=== PATIENT | male | born 2000 | race Caucasian/White ===

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

== ENCOUNTER → 2021-02-09 13:42 | Outpatient (CLI) | payer BC, SELFPAY | PROVIDERS: PCP Emergency Medicine; Visit Provider Nurse Practitioner | DX: Z20.822 Contact with and (suspected) exposure to COVID-19 (principal) | CPT/HCPCS: C9803; U0003; U0005 ==

== ENCOUNTER → 2021-12-19 15:09 | Outpatient (CLI) | payer BC, SELFPAY ==
[2021-12-19 16:06] LABS: Basophils # 0.1 K/mm3 (0-0.2); Basophils % 1.2 % (0.1-2.0); Eosinophils # 0.2 K/mm3 (0.0-0.4); Eosinophils % 1.9 % (0.1-12.0); Hematocrit 48.4 % (42.0-52.0); Hemoglobin 14.8 g/dL (14.1-18.0); Lymphocytes # 4.2 K/mm3 (0.7-4.5); Lymphocytes % 43.2 % (10-50); Mean Corpuscular HGB Conc 30.6 g/dL (31.8-35.4); Mean Corpuscular Volume 91.4 fl (80-94); Monocytes # 0.6 K/mm3 (0.1-1.0); Monocytes % 6.3 % (1.7-9.3); Neutrophils # 4.6 K/mm3 (1.8-7.8); Neutrophils % 47.3 % (37.0-80.0); Platelet Count 305 K/mm3 (142-424); Red Blood Count 5.29 M/mm3 (4.60-6.20); Red Cell Distribution Width 13.5 % (11.5-17.5); White Blood Count 9.6 K/mm3 (4.5-13.0)
[2021-12-19 16:22] LABS: Alanine Aminotransferase 29 U/L (12-78); Albumin Level 4.4 g/dl (3.5-5.0); Albumin/Globulin Ratio 1.4 (1.1-1.8); Alkaline Phosphatase 104 U/L (38-126); Anion Gap 17.6 mEq/L (5-15); Aspartate Amino Transferase 40 U/L (17-59); Bilirubin,Total 0.3 mg/dl (0.2-1.3); Blood Urea Nitrogen 16 mg/dl (9-20); Calcium 9.2 mg/dl (8.4-10.2); Carbon Dioxide 33 mmol/L (22.0-30.0); Chloride 97 mmol/L (98-107); Estimated Glomerular Filt Rate 95 ml/min (>60); GFR (African American) 115 ML/MIN (>60); Globulin 3.2 g/dL (1.3-3.2); Glucose 77 mg/dl (74-100); Potassium 3.6 mmoL/L (3.5-5.1); Sodium 144 mmol/L (136-145); Total Protein,Serum 7.6 g/dl (6.3-8.2)
[2021-12-19 16:34] LABS: Erythrocyte Sedimentation Rate 5 mm/hr (0-15)
[2021-12-21 08:10] LABS: RA Latex Turbid. <10.0 IU/mL (<14.0)
[2021-12-22 14:11] LABS: Albumin 3.9 g/dL (2.9-4.4); Alpha-1-Globulin 0.3 g/dL (0.0-0.4); Alpha-2-Globulin 0.8 g/dL (0.4-1.0); Gamma Globulin 1.5 g/dL (0.4-1.8); Protein, Total 7.4 g/dL (6.0-8.5)
[2021-12-22 21:42] LABS: Antinuclear Antibodies, IFA Negative (.)
[2021-12-24 09:44] LABS: Lyme B. burgdorferi PCR Blood Negative (Negative)
[2021-12-25 14:19] LABS: Candida Antibodies IgA Negative (Negative); Candida Antibodies IgG Equivocal (Negative); Candida Antibodies IgM Negative (Negative)
== END ==
PROVIDERS: PCP Emergency Medicine; Visit Provider Emergency Medicine
DX: R53.83 Other fatigue (principal)
CPT/HCPCS: 36415; 80053; 84155; 84165; 84550; 85025; 85651; 86038; 86431; 86628; 87476

== ENCOUNTER 2022-01-10 17:27 | Emergency (ER) | payer BC, SELFPAY ==
[2022-01-10 19:10] VITALS: BP 117/87; PULSE 89; RESP 19; TEMP 36.8; O2SAT 99; BMI 18.6
[2022-01-10 19:14] LABS: Apearance,Urine Clear (Clear); Bilirubin,Urine Negative (Negative); Blood, Urine Negative (Negative); Color,Urine Yellow (Yellow); Glucose,Urine (UA) Negative (Negative); Ketones,Urine Negative (Negative); Protein,Urine Negative (Negative); Specific Gravity, Urine 1.025 (1.005-1.030); UTC Leukocyte Esterase,Urine Negative (Negative); UTC Nitrate,Urine Negative (Negative); Urobilinogen,Urine 0.2 EU/dl (0.2)
[2022-01-10 19:19] LABS: Microscopic, Urine URINE MICROSCOPIC (MICROSCOPIC)
[2022-01-10 19:22] LABS: Appearance,Urine CLEAR (Clear); Bilirubin,Urine Negative (Negative); Blood, Urine Negative (Negative); Color,Urine YELLOW (Yellow); Glucose,Urine (UA) Negative (Negative); Ketones,Urine Negative (Negative); Leukocyte Esterase,Urine Negative (Negative); Nitrate,Urine Negative (Negative); PH,Urine 7.5 (5.0-8.5); Protein,Urine Negative (Negative); Urobilinogen,Urine 0.2 EU/dl (0.2)
[2022-01-10 19:34] LABS: Bacteria,Urine Trace /lpf; Squamous Epithelial Cell,Urine Occasional #/hpf (0-5)
--- NOTE | 2022-01-10 20:04 | EXP.UTC ---
Discharge Plan Disposition Patient Disposition: Home, Self-Care Condition: Good Prescriptions Prescriptions: No Action Vraylar 1.5 mg capsule 1.5 mg PO DAILY Qty: 30 1RF quetiapine [Seroquel] 50 mg tablet 50 mg PO QHS Qty: 30 1RF bupropion HCl [Wellbutrin XL] 300 mg tablet extended release 24 hr 300 mg PO DAILY Qty: 30 1RF buspirone 10 mg tablet 10 mg PO BID Qty: 60 1RF prednisone 20 mg tablet See Rx Instructions .Route .COMPLEX Qty: 21 0RF Rx Instructions: Take 2 tablets twice daily for 3 days, then Take 1 tablet twice daily for 3 days, then Take 1 tablet daily for 3 days Referrals Follow up/Referrals: Romel Mcmullen MD [Primary Care Provider] - See instructions Activity Restrictions/Add. Instructions Additional Instructions/Restrictions: Make sure to follow up with your Family Doctor if symptoms persist and immediately if they worsen Straight to ER if any life threatening symptoms Follow up in the next 5-7 days for the results of your test Return if needed Clinical Impressions Clinical Impression: Urinary problem Instructions Patient Instructions: Chlamydia: The Silent STD, Facts About Sexually Transmitted Infections, How to Detect and Treat STDs Discharge ED Provider: Oralia Conrad [facility] General Stated complaint: poss UTI Mode of Arrival: Ambulatory Source of Information: Patient Limitations: No Limitations Time Seen by Provider: 01/10/22 20:04 Description of Symptoms (Recalled from Triage Doc. by RN): PATIENT C/O RIGHT LOWER BACK PAIN AND PAINFUL URINATION X 5 DAYS HEENT Symptoms (Recalled from RN notes): No Resp Symptoms (Recalled from RN notes): No Skin Symptoms (Recalled from RN notes): No MS Symptoms (Recalled from RN notes): No Functional Status (Recalled from RN notes): WNL History of Present Illness Provider Complaint: Patient states that he has had slight pain on and off for about 5 days State that he went to the bathroom earlier today and had the pain again and was feeling achy like in his right side States that not having pain now but was concerned and wanted to get tested for UTI and GC/Gonorrhea and trich States that he was worried he may have an STD States that father has kidney stones but told him this is not like what he had Denies swelling in scrotum and had a little discharge earlier after he urinated but not since Related Data Previous Rx's Medication Instructions Recorded cariprazine 1.5 mg capsule 1.5 mg PO DAILY #30 caps 08/04/21 (Vraylar) bupropion HCl 300 mg 24 hr tablet, 300 mg PO DAILY #30 tabs 10/02/21 extended release (Wellbutrin XL) buspirone 10 mg tablet 10 mg PO BID #60 tabs 10/02/21 quetiapine 50 mg tablet (Seroquel) 50 mg PO QHS #30 tabs 10/02/21 prednisone 20 mg tablet See Rx Instructions .Route 12/12/21 .COMPLEX #21 tabs Allergies Allergy/AdvReac Type Severity Reaction Status Date / Time cephalexin Allergy Intermediate Hives Verified 10/02/21 13:05 doxycycline Allergy Verified 01/10/22 19:31 pseudoephedrine Allergy Verified 01/10/22 19:31 [From Sudafed] Worker's Comp Is this a Worker's Comp case?: No [facility] Medical History (Updated 01/10/22 @ 20:17 by Oralia Conrad APRN) Generalized anxiety disorder Major depressive disorder Social History (Updated 01/10/22 @ 19:30 by Allie Yuen RN) Smoking Status: Never smoker alcohol intake: never substance use type: denies use and marijuana (last time was on 06-18; this was the 1st time he ever did this; it was prom. He went to [facility]; did not have a prom date.) current occupational status: other Travel in the last 8 weeks: None household members: family housing: house number of children: 0 ROS Obtained: Yes All systems reviewed & no additional complaints except as documented and Yes Systems reviewed as appropriate & no additional complaints except as documented Constitutional Constitutional: Reports system reviewed and no add
[2022-01-10 20:20] VITALS: BP 117/87; PULSE 89; RESP 19; TEMP 36.8; O2SAT 99
[2022-01-13 22:17] LABS: Neisseria gonorrhoeae, NAA Negative (Negative)
== END 2022-01-10 20:24 | disposition home or self-care (01) ==
PROVIDERS: Emergency Provider Nurse Practitioner; PCP Emergency Medicine
DX: R30.9 Painful micturition, unspecified (principal); M54.50 Low back pain, unspecified
CPT/HCPCS: 81001; 81003; 87086; 87491; 87591; 99212; G0463

== ENCOUNTER → 2022-07-31 16:24 | Outpatient (CLI) | payer BC, SELFPAY ==
[2022-08-04 15:12] LABS: QuantiFERON-TB Gold Plus Negative (Negative)
== END ==
PROVIDERS: PCP Emergency Medicine; Visit Provider Nurse Practitioner Family
DX: Z11.1 Encounter for screening for respiratory tuberculosis
CPT/HCPCS: 36415; 86480

== ENCOUNTER → 2022-08-27 15:00 | Outpatient (CLI) | payer BC, SELFPAY ==
[2022-08-27 18:14] LABS: Basophils % 0.3 % (0.1-2.0); Eosinophils # 0.5 K/mm3 (0.0-0.4); Eosinophils % 4.7 % (0.1-12.0); Hematocrit 47.6 % (42.0-52.0); Hemoglobin 15.2 g/dL (14.1-18.0); Lymphocytes # 2.1 K/mm3 (0.7-4.5); Lymphocytes % 21.1 % (10-50); Mean Corpuscular HGB Conc 31.9 g/dL (31.8-35.4); Mean Corpuscular Volume 90.8 fl (80-94); Mean Platelet Volume 9.1 fl (7.4-10.4); Monocytes # 0.7 K/mm3 (0.1-1.0); Monocytes % 7.1 % (1.7-9.3); Neutrophils # 6.7 K/mm3 (1.8-7.8); Neutrophils % 66.8 % (37.0-80.0); Platelet Count 210 K/mm3 (142-424); Red Blood Count 5.24 M/mm3 (4.60-6.20); Red Cell Distribution Width 12.8 % (11.5-17.5)
[2022-08-27 18:55] LABS: Alanine Aminotransferase 30 U/L (12-78); Albumin Level 4.8 g/dl (3.5-5.0); Albumin/Globulin Ratio 1.5 (1.1-1.8); Alkaline Phosphatase 81 U/L (38-126); Anion Gap 17.6 mEq/L (5-15); Aspartate Amino Transferase 43 U/L (17-59); Bilirubin,Total 0.3 mg/dl (0.2-1.3); Blood Urea Nitrogen 21 mg/dl (9-20); Calcium 9.6 mg/dl (8.4-10.2); Carbon Dioxide 28 mmol/L (22.0-30.0); Chloride 101 mmol/L (98-107); Estimated Glomerular Filt Rate 107 ml/min (>60); GFR (African American) 129 ML/MIN (>60); Globulin 3.2 g/dL (1.3-3.2); Glucose 92 mg/dl (74-100); Potassium 4.6 mmoL/L (3.5-5.1); Sodium 142 mmol/L (136-145)
[2022-08-27 19:10] LABS: C-Reactive Protein 0.7 mg/L (0-4)
[2022-08-27 19:13] LABS: 25-OH Vitamin D, Total 121 ng/mL (30-100)
[2022-08-27 19:27] LABS: Erythrocyte Sedimentation Rate 3 mm/hr (0-15); Thyroid Stimulating Hormone 1.15 uIU/mL (0.465-4.68)
[2022-08-29 12:10] LABS: Anti-Cyclic Citrullinated Pept 5 units (0-19)
[2022-08-29 16:02] LABS: Anti-Cardio Antibody IgM 23 MPL U/mL (0-12); Anti-Cardiolipin Antibody IgG <9 GPL U/mL (0-14); Anticardiolipin Ab,IgA,Qn <9 APL U/mL (0-11)
[2022-08-31 16:16] LABS: Anti-Centromere B Antibodies <0.2 AI (0.0-0.9); Anti-DNA (DS) Ab Qn 1 IU/mL (0-9); Anti-Jo-1 <0.2 AI (0.0-0.9); Anti-Smith Antibody <0.2 AI (0.0-0.9); Antichromatin Antibodies <0.2 AI (0.0-0.9); Antiscleroderma-70 Antibodies <0.2 AI (0.0-0.9); RA Latex Turbid. <10.0 IU/mL (<14.0); RNP Antibodies <0.2 AI (0.0-0.9); Sjogren's Anti-SS-A <0.2 AI (0.0-0.9); Sjogren's Anti-SS-B <0.2 AI (0.0-0.9)
[2022-08-31 21:43] LABS: Rocky Mtn Spotted Fever, IgM 0.49 index (0.00-0.89)
[2022-08-31 23:19] LABS: RMSF, IgG, EIA Negative (Negative)
[2022-09-01 18:00] LABS: Beta-2 Glycoprotein I Ab, IgG <9 (0-20); Beta-2 Glycoprotein I Ab, IgM <9 (0-32)
[2022-09-04 00:39] LABS: Lyme B. burgdorferi PCR Blood Negative (Negative)
== END ==
PROVIDERS: PCP Physician Assistant; Visit Provider Physician Assistant
DX: G89.29 Other chronic pain (principal); M25.551 Pain in right hip; M25.552 Pain in left hip; M25.561 Pain in right knee; M25.562 Pain in left knee; R21 Rash and other nonspecific skin eruption
CPT/HCPCS: 80053; 82306; 84443; 85025; 85651; 86140; 86146; 86147; 86200; 86225; 86235; 86431; 86609; 87476